=== PATIENT | female | born 1945 | race Caucasian/White ===

== ENCOUNTER → 2019-10-30 12:49 | Outpatient (CLI) | payer MEDICARE, SELFPAY ==
--- NOTE | 2019-10-30 12:56 | XR_ITS ---
PROCEDURE: XR DEXA AXIAL SKELETON CLINICAL HISTORY: OSTEOPORSIS COMPARISON: No exams were available for comparison FINDINGS: This exam is submitted to de for interpretation on 03/19/2020 at 3:03 p.m. The right hip BMD is 0.714 with a T-score of -1.2. The left hip BMD is 0.711 with a T-score of -1.2. The lumbar spine BMD is 0.803 with a T-score of -2.2. IMPRESSION: This patient is considered osteopenic according to the World Health Organization criteria. Bone density is between 10 and 25 percent below young normal. Fracture risk is moderate. Treatment is advised. Based on these results a follow-up exam is recommended in 2 year. Dictated by: Edis Pham MD 03/19/2020 15:03 Edis Pham MD in [place] 03/19/2020 15:03
== END ==
PROVIDERS: PCP Family Medicine; Visit Provider Family Medicine
DX: M81.0 Age-related osteoporosis without current pathological fracture (principal)
CPT/HCPCS: 77080

== ENCOUNTER → 2020-11-14 08:02 | Outpatient (CLI) | payer MEDICARE, SELFPAY ==
[2020-11-14 08:45] LABS: Chloride 103 mmol/L (98-107); Potassium 4.7 mmoL/L (3.5-5.1); Sodium 135 mmol/L (136-145)
[2020-11-14 08:48] LABS: Alanine Aminotransferase 16 U/L (12-78); Albumin Level 4.1 g/dl (3.5-5.0); Albumin/Globulin Ratio 1.8 (1.1-1.8); Alkaline Phosphatase 80 U/L (38-126); Anion Gap 8.7 mEq/L (5-15); Aspartate Amino Transferase 25 U/L (14-36); Bilirubin,Total 0.5 mg/dl (0.2-1.3); Blood Urea Nitrogen 10 mg/dl (7-17); Calcium 9.3 mg/dl (8.4-10.2); Carbon Dioxide 28 mmol/L (22.0-30.0); Cholesterol 174 mg/dl (140-200); Estimated Glomerular Filt Rate 82 ml/min (>60); GFR (African American) 99 ML/MIN (>60); Globulin 2.3 g/dL (1.3-3.2); Glucose 98 mg/dl (74-100); Total Protein,Serum 6.4 g/dl (6.3-8.2); Triglycerides 145 mg/dl (30-150); VLDL Cholesterol 29 mg/dL (0-40)
[2020-11-14 08:49] LABS: Chol/HDL Ratio 2.7 (1-3.5); HDL Cholesterol 64 mg/dl (40-60)
[2020-11-14 09:00] LABS: Direct LDL Cholesterol 86.16 mg/dL (100-129)
[2020-11-14 09:58] LABS: Thyroid Stimulating Hormone 2.73 uIU/mL (0.465-4.68)
[2020-11-14 10:05] LABS: Creatinine,Urine Random 52 mg/dL (Not Estab.)
[2020-11-14 10:15] LABS: Microalbumin/Creatinine Ratio 15.3
[2020-11-14 11:07] LABS: 25-OH Vitamin D, Total 49.5 ng/mL (30-100)
== END ==
PROVIDERS: Visit Provider Family Medicine
DX: I10 Essential (primary) hypertension (principal); E78.00 Pure hypercholesterolemia, unspecified; E55.9 Vitamin D deficiency, unspecified
CPT/HCPCS: 36415; 80053; 80061; 82043; 82306; 82570; 84443

== ENCOUNTER → 2020-12-17 09:22 | Outpatient (CLI) | payer MEDICARE, SELFPAY | PROVIDERS: Visit Provider Surgery | DX: Z01.812 Encounter for preprocedural laboratory examination (principal); Z11.52 Encounter for screening for COVID-19; Z12.11 Encounter for screening for malignant neoplasm of colon | CPT/HCPCS: C9803; U0003; U0005 ==

== ENCOUNTER → 2020-12-19 10:21 | Day surgery (SDC) | payer MEDICARE, SELFPAY ==
[2020-12-16 14:16] VITALS: BMI 24.3
[2020-12-19] VITALS (9 sets, daily range): BP systolic 93–168; BP diastolic 52–96; PULSE 59–94; RESP 16–18; TEMP 36.2–36.6; O2SAT 95–99
--- NOTE | 2020-12-19 12:32 | HMH.ANESCL ---
[facility] Anesthesia Checklist - Structural Data Admitted From: Home Planned Operative Procedure/s: colonoscopy Consent for Planned Operative Procedure(s) Verified: Yes - Airway Assessment C-Spine Mobility Assessed: Yes TMJ Mobility Assessed: Yes Dentition: Good Dentition - Neurological Assessment Level of Consciousness: Alert, Appropriate - Anesthesia Plan Anesthesia Risk discussed: Yes Anesthesia Plan: Verified ASA Class: II Anesthesia Type: MAC [facility] History I have reviewed the patient's past medical history: Yes Medical History: Reports:: Cancer (breast and lymph node), Hyperlipidemia, Hypertension Denies:: Diabetes Mellitus Type 1, Diabetes Mellitus Type 2, Internal Pacemaker, MRSA, Seizures *Have you ever received a pneumonia vaccine?: Yes *Have you received a flu vaccine this season?: Yes Anesthesia experience/problems:: none Laterality Cases: Right: Mastectomy Other Surgeries: No: Pacemaker Amputation: No Fractures: No - *Social History Last grade of school completed: Some college Smoking Status: Current every day smoker Tobacco Type: cigarettes # Packs/Day (cigarettes): 1 Alcohol Intake: never Substance Use Type: denies use *Occupational Status:: retired Housing: house Household Members: spouse *Travel in the last 8 weeks: Inside the [facility] Family Hx:: Cancer, Coronary Artery Disease, Hyperlipidemia, Hypertension
--- NOTE | 2020-12-19 12:41 | P.PCN_ITS ---
- Procedure: Date: 12/19/20 Patient Date of :: 1945 Procedure Performed:: Colonoscopy with polypectomy Indications:: History of polyps Positive Cologuard Performing Provider:: Ponce Santiago MD Referring Provider:: . Sedation:: Monitored anesthesia care Procedure:: After informed consent was obtained the patient was taken to the endoscopy suite . Sedation ensued after the patient was transferred to the left lateral decubitus position. Pulse, blood pressure, and oxygen saturation were monitored throughout the procedure. Digital rectal exam revealed no significant abnormality. The colonoscope was placed in position. The entire colon was evaluated. The colonoscope was carefully removed and the patient was transferred to recovery in stable condition. Please see findings and specimens below for detail. Findings:: Bowel preparation relatively poor Profound lack of relaxation Severe colonic spasticity Significant tortuosity of sigmoid colon Diverticulosis (most pronounced in sigmoid colon) Multiple large complex polyps (see specimens) Specimens:: Lobulated sessile adjacent right colon/hepatic flexure polyps (snare) Large complex pedunculated polyp at 35 cm (snare) Large complex pedunculated polyp at 15 cm (snare) Recommendations:: Further evaluation will be pending results of pathology; however, a short-term repeat evaluation is warranted secondary to size/nature/number of polyps and limitations in visualization. Will consider gastroenterology evaluation secondary to spasticity and lack of relaxation. Short-term repeat colonoscopy may be deferred to the gastroenterology service. Complications:: No immediate. Flat/upright films ordered secondary to overall difficulty of procedure with need to remove multiple large complex polyps. Estimated blood obtained (mL): 1
--- NOTE | 2020-12-19 15:00 | XR_ITS ---
PROCEDURE: XR ACUTE ABDOMEN SERIES CLINICAL INDICATION: Abdominal pain status post colonoscopy COMPARISON: No exams were available for comparison FINDINGS: Upright view of the chest shows no acute finding. Upright and supine views of the abdomen shows a nonspecific bowel gas pattern. No intestinal obstruction. No free air. IMPRESSION: No acute findings. Dictated by: Edis Pham MD 12/19/2020 15:07 Edis Pham MD in [place] 12/19/2020 15:07
== END ==
PROVIDERS: PCP Family Medicine; Visit Provider Surgery
PROC: 0DJD8ZZ Inspection of Lower Intestinal Tract, Via Natural or Artificial Opening Endoscopic (ICD-10-PCS; principal; 2020-12-19 11:30)
DX: K62.89 Other specified diseases of anus and rectum (principal); K63.5 Polyp of colon; K56.2 Volvulus; K58.9 Irritable bowel syndrome, unspecified; K57.32 Diverticulitis of large intestine without perforation or abscess without bleeding; Z86.010 Personal history of colon polyps; Z85.3 Personal history of malignant neoplasm of breast; E78.5 Hyperlipidemia, unspecified; I10 Essential (primary) hypertension; Z72.0 Tobacco use; Z80.9 Family history of malignant neoplasm, unspecified; Z82.49 Family history of ischemic heart disease and other diseases of the circulatory system; Z83.438 Family history of other disorder of lipoprotein metabolism and other lipidemia
CPT/HCPCS: 45385; 74021; 88305

== ENCOUNTER → 2021-09-16 06:15 | Outpatient (CLI) | payer MEDICARE, SELFPAY ==
--- NOTE | 2021-09-16 | CA_ITS ---
APPROVED REPORT Exam: Exercise Treadmill Technologist: Patricia Harvey, Ht: 5 ft 8 in Wt: 160 lbs BSA: 1.86 m2 HR: 63 bpm BP: 128/66 mmHg Rhythm: NSR, normal Medical History Medical History: HTN, Hyperlipidemia Medications: Naproxen,,,,, Vit D3,,,,, Simvasatin,,,,, Lisinporil,,,,, Cardiac Risk Factors: HTN, Hyperlipidemia Stress Test Details Test: Enedina HR Resting HR: 73 bpm Max Heart Rate (APMHR): 144.322336 bpm Max HR Achieved: 127 bpm Target HR (85% APMHR): 122.605962 bpm % of APMHR: 88.19 Recovery HR: 93 bpm BP Resting BP: 128/66 mmHg Max BP: 196/80 mmHg Recovery BP: 174.0/84.0 mmHg ECG Resting ECG: NSR, normal Clinical Exercise duration: 06:00 min Highest Stage Achieved: Exercise capacity: 7.0 METs Stress ECG Conclusion Amlodipine 5mg and clonidine .1mg PO given 1.5 hours before starting exercise stress. Meds ordered by Dr Garcia Pt exercised total of 6:00 minutes. During enedina protocol pt experinced mild dizziness the last 30 seconds of exercise. No CP noted. No arrhythmias noted. Allowing for motion artifact the ST response to exercise appears to be within normal. Normal GXT. Myoview images reported separately. Test Summary REST . . . . . . . Standing REST . . . . . . . Sitting REST 04:55 0.0 0.0 73 . 128/ 66 . . Stage 1 01:00 10.0 1.7 97 . . . . Stage 1 02:00 10.0 1.7 103 . . . . Stage 1 03:00 10.0 1.7 107 . 196/ 80 . . Stage 2 01:00 12.0 2.5 118 . . . . Stage 2 02:00 12.0 2.5 120 . . . . Stage 2 03:00 12.0 2.5 127 . . . Stop exercise at 06:00 RECOVERY 01:00 0.0 0.0 109 . . . . RECOVERY 02:00 0.0 0.0 91 . . . . RECOVERY 03:00 0.0 0.0 83 . 174/ 84 . . RECOVERY 04:00 0.0 0.0 72 . 174/ 91 . . RECOVERY 05:00 0.0 0.0 74 . 161/ 76 . . RECOVERY 06:00 0.0 0.0 70 . 161/ 76 . . RECOVERY 06:45 0.0 0.0 72 . 161/ 76 . . Electronically signed by : Elroy Avelar MD 09/17/2021 06:36:34
--- NOTE | 2021-09-16 06:31 | NM_ITS ---
APPROVED REPORT Exam: Nuclear Stress Test Indication: Abnormal EKG, Syncope, HTN, High cholesterol, Tobacco use Patient Location: Outpatient Stress Tech: Patricia MAYO Tech:Helene Perez, ARRT, RT (R)(N) Ht: 5 ft 8 in Wt: 160 lbs Bra Size: 34C HR: 73 bpm BP: 128/66 mmHg BSA: 1.86 m2 TID: 1.15 BMI: 24.3 History: Abnormal EKG, Syncope, HTN, High cholesterol, Tobacco use Procedure: Patient exercised on Alfa protocol 6:00 minutes and sec, resting heart rate 73 bpm, resting blood pressure 128/66 mmHg, with exercise maximum heart rate achived was 127 bpm which is 88 % of the maximum predicted heart rate and blood pressure was 196/80 mmHg. Test was stopped due to SOB. Patient denied any complaint of chest pain. Patient has Adequate exercise capacity, achieved 7.0 METs of workload on treadmill, the blood pressure response to exercise was Normal . Electrocardiogram Resting electrocardiogram shows sinus rhythm, with exercise there is less than 1.[address] segment depression is noted from the baseline EKG. The EKG portion of the exercise Myoview is negative for ischemia. Cardiac Stress and Resting SPECT Images: Cardiac Stress and Resting SPECT images were obtained using technetium 99m Myoview 28.9 mCi stress and 10.50 mCi at rest. Gated SPECT for analysis of segmental wall motion and calculation of the ejection fraction also done. Cardiac stress and resting SPECT images show uniform myocardial activity without segmental perfusion abnormality, computer derived ejection fraction is 55% with no regional wall motion abnormality, right ventricle is normal size and contractility. Conclusion: 1. The EKG portion of the exercise Myoview is negative for ischemia, patient has adequate exercise capacity achieved 7 METS of workload on treadmill, the blood pressure response to exercise was adequate. There was no exercise-induced chest discomfort. 2. No scintigraphic evidence of reversible ischemia seen, computer derived ejection fraction is 55% with no regional wall motion abnormality, right ventricle is normal size and contractility. 3. Normal exercise Myoview study. Electronically signed by : Elroy Avelar MD 09/17/2021 06:40:39
--- NOTE | 2021-09-16 09:54 | HMH.ITSHM ---
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 []LISINOPRIL SIMVASTATIN NAPROXEN CALCIUM
== END ==
PROVIDERS: PCP Family Medicine; Visit Provider Family Medicine
DX: R55 Syncope and collapse (principal); R94.31 Abnormal electrocardiogram [ECG] [EKG]
CPT/HCPCS: 78452; 93017; A9502

== ENCOUNTER → 2021-11-13 09:51 | Outpatient (CLI) | payer MEDICARE, SELFPAY ==
--- NOTE | 2021-11-13 09:56 | MM_ITS ---
PROCEDURE INFORMATION: Exam: MG Left Screening 3D Mammography Exam date and time: 11/13/2021 9:52 AM Age: 76 years old Clinical indication: Screening. Personal history of right breast cancer, status post right mastectomy. TECHNIQUE: Imaging protocol: Left Screening tomosynthesis and 2D mammography including computer-aided detection (CAD) when performed. COMPARISON: 1. MG MM MAMMO DIGITAL MARIE SCREEN LEFT 11/06/2020 12:42 PM 2. MG MM MAMMO DIGITAL MARIE SCREEN LEFT 11/06/2020 12:42 PM 3. MG MM MAMMO DIGITAL MARIE SCREEN LEFT 10/25/2019 12:53 PM FINDINGS: MAMMOGRAPHY: Breast composition: The breasts are heterogeneously dense, which may obscure small masses. Mass: None. Architectural distortion: None. Calcifications: No suspicious calcifications. Asymmetric density: None. Skin thickening: None. Axillary adenopathy: None. Other findings: Biopsy clip. IMPRESSION: No mammographic evidence of malignancy. Annual screening is recommended unless otherwise clinically indicated. Technologist notes history of sonogram following an area in the left breast, if prior images or reports are provided, I am happy to add an addendum. Please refer to these at outside recommendations as well. ASSESSMENT: BI-RADS Category 2: Benign
== END ==
PROVIDERS: PCP Internal Medicine Cardiovascular Disease; Visit Provider Family Medicine
DX: Z12.31 Encounter for screening mammogram for malignant neoplasm of breast (principal)
CPT/HCPCS: 77063; 77067

== ENCOUNTER → 2022-11-18 10:46 | Outpatient (CLI) | payer MEDICARE, SELFPAY ==
--- NOTE | 2022-11-18 10:49 | MM_ITS ---
PROCEDURE INFORMATION: Exam: MG Left Screening 3D Mammography Exam date and time: 11/18/2022 10:40 AM Age: 77 years old Clinical indication: Screening examination; Additional info: H/o RT breast cancer, status post mastectomy TECHNIQUE: Imaging protocol: Left Screening tomosynthesis and 2D mammography including computer-aided detection (CAD) when performed. COMPARISON: 1. MG MM DIG SC MAMM UNILAT LT CAD 11/13/2021 9:52 AM 2. MG MM MAMMO DIGITAL MARIE SCREEN LEFT 11/06/2020 12:42 PM FINDINGS: MAMMOGRAPHY: Breast composition: The breast is heterogeneously dense, which may obscure small masses. Mass: None. Architectural distortion: None. Calcifications: No suspicious calcifications. Asymmetric density: None. Skin thickening: None. Axillary adenopathy: None. Other findings: The patient is status post right mastectomy IMPRESSION: No mammographic evidence of malignancy. Annual screening is recommended unless otherwise clinically indicated. ASSESSMENT: BI-RADS Category 1: Negative
== END ==
PROVIDERS: PCP Family Medicine; Visit Provider Family Medicine
DX: Z12.31 Encounter for screening mammogram for malignant neoplasm of breast (principal)
CPT/HCPCS: 77063; 77067

== ENCOUNTER 2023-11-22 13:36 | Outpatient (CLI) | payer MEDICARE, SELFPAY ==
--- NOTE | 2023-11-22 13:44 | MM_ITS ---
PROCEDURE INFORMATION: Exam: MG Left Screening 3D Mammography Exam date and time: 11/22/2023 1:44 PM Age: 78 years old Clinical indication: Screening examination; Personal history of right breast cancer status post mastectomy. TECHNIQUE: Imaging protocol: Left Screening tomosynthesis and 2D mammography including computer-aided detection (CAD) when performed. COMPARISON: 1. MG MM DIG SC MAMM UNILAT LT CAD 11/18/2022 10:40 AM 2. MG MM DIG SC MAMM UNILAT LT CAD 11/13/2021 9:52 AM FINDINGS: MAMMOGRAPHY: Breast composition: There are scattered areas of fibroglandular density. Mass: No suspicious masses. Architectural distortion: None. Calcifications: No suspicious calcifications. Asymmetric density: None. Skin thickening: None. Axillary adenopathy: None. IMPRESSION: No mammographic evidence of malignancy. Annual screening is recommended unless otherwise clinically indicated. ASSESSMENT: BI-RADS Category 1: Negative.
== END 2023-11-22 23:59 | disposition home or self-care (01) ==
LOC: RAD 13:36
PROVIDERS: PCP Family Medicine; Visit Provider Family Medicine
DX: Z12.31 Encounter for screening mammogram for malignant neoplasm of breast (principal); Z85.3 Personal history of malignant neoplasm of breast
CPT/HCPCS: 77063; 77067

== ENCOUNTER 2023-12-17 09:46 | Outpatient (CLI) | payer MEDICARE, SELFPAY ==
--- NOTE | 2023-12-17 09:52 | XR_ITS ---
FINAL REPORT CLINICAL HISTORY: PAIN; pt states fluid on elbow COMPARISON: None FINDINGS: LEFT ELBOW: 3 images of the left elbow were obtained. There is no evidence of fracture or dislocation. Mild degenerative change is present. There is soft tissue swelling overlying the olecranon, consistent with olecranon bursitis. IMPRESSION: No acute bony abnormality. Soft tissue swelling overlying the olecranon, consistent with olecranon bursitis. Reviewed, Interpreted and Dictated by Zana Person III, MD Transcribed by Oneida Camara Authenticated and [facility]
== END 2023-12-17 23:59 | disposition home or self-care (01) ==
LOC: RAD 09:48
PROVIDERS: PCP Family Medicine; Visit Provider Family Medicine
DX: M25.522 Pain in left elbow (principal)
CPT/HCPCS: 73080

== ENCOUNTER 2024-11-23 10:01 | Outpatient (CLI) | payer MEDICARE, SELFPAY ==
--- OUTSIDE RECORDS SUMMARY | 2024-02-22 07:15 | XMS_ITS ---
Author Organization [facility] Address [address] [facility] [address] [place] [id number] Care Team Providers Care Campaign Fundraiser Name Role Phone Shayne Garcia Primary Care Provider Allergies Allergen (clinical drug ingredient) Drug/Non Drug Allergy documented on EMR Reaction Allergy Type Onset Date Status alendronate Alendronate Sodium GI upset Drug Allergy 2019 Active REASON FOR VISIT sore spot on leg Social History Tobacco Use: Social History Observation Description Date Smoking Status WARNING: Information temporarily unavailable CURRENT TOBACCO USE: Question Answer Notes Are you a: 1/2 pack daily, Since Age: 19 Encounters Encounter Location Date Provider Diagnosis [facility] [address] [place] [id number] 02/22/2024 Shayne Garcia Plan Of Treatment Next Appt Details Provider Name:Shayne Martinez ry, 04/24/2025 09:45:00 AM, [address], [place], [place], [id number], Progress Notes * TERESITA JALLOHOB:1945 (79 yo F)Acc No.[id number]:02/22/2024 Progress Notes Patient: EDYTA HIRSCH Provider: Lucho Garcia M.D. :1945 A ge:78 Y S ex:Female Date:02/22/2024 Address:[address], [place], [id number] Subjective: * Chief Complaints: * 1 . Sore spot on leg. * ROS: C ARDIOLOGY: no D izziness. n o C hest pain. G ASTROENTEROLOGY: no N ausea. n o V omiting. U ROLOGY: no D ifficulty urinating. n o B lood in urine. * Medical History: H ypertension, Hyperlipidemia, RT Side Breast Cancer, Oct/Nov 1998 - Chemo, Surgery, Radiation - Chemo 2000 and 2001, Arthritis, Allergic Rhinitis, Neuropathy - Cancer, Osteoporosis, Cologuard, 2018 (normal), 2020 (abnormal), see colonoscopy, DVT, left upper extremity after IV port placement, s/p 6 months of Warfarin therapy, Colon polyps, Diverticulosis, 25 pack year smoking history as of 2021. * Surgical History: R T Mastectomy 02/1999, Colonoscopy 2020. * Hospitalization/Major Diagno stic Procedure: M astectomy - Overnight stay - [facility] 02/1999. * Family History: F ather: 82 yrs, diagnosed with Diabetes, Hypertension, Heart Disease. M other: 90 yrs, diagnosed with Hypertension, Stroke. S iblings: alive, diagnosed with Cancer. Children: alive. P aternal Grand Father: diagnosed with Heart Disease, Cancer. M aternal Grand Father: diagnosed with Heart Disease. P aternal uncle: diagnosed with Diabetes. P aternal aunt: diagnosed with Diabetes. M aternal uncle: diagnosed with Diabetes. M aternal aunt: diagnosed with Diabetes, Cancer. 3 sister(s) . 2 son(s) - healthy. . Lymphoma, Breast. * Social History: C URRENT TOBACCO USE: Yes A re you a: 1/2 pack daily, Since Age: 19. C affeine: yes, 7 cups a day. * Allergies: A lendronate Sodium: GI upset - Side Effects - Onset Date 10/24/2019. Objective: * Vitals: Assessment: Plan: * Treatment: * Procedure Codes: G 2211 Complex e/m visit add on * Images: Billing Information: * Visit Code: * Procedure Codes: G2211 Complex e/m visit add on. * Electronic signature of Nadira Garcia MD on 11/23/2024 at 10:19 AM EDT Sign off status: Pending * Provider: Lucho Garcia M.D. Date: 0 02/22/2024 Generated for Trey crouch/Robel/Huey on: 1 10:19 AM EDT
--- OUTSIDE RECORDS SUMMARY | 2024-02-25 06:45 | XMS_ITS ---
Author Organization [facility] Address [address] [place] [id number] Care Team Providers Care Steamtable Attendant Railroad Name Role Phone Shayne Garcia Primary Care Provider Allergies Allergen (clinical drug ingredient) Drug/Non Drug Allergy documented on EMR Reaction Allergy Type Onset Date Status alendronate Alendronate Sodium GI upset Drug Allergy 2019 Active Results Component Value Reference Range Notes P-Surgical Pathology Reviewed date:02/28/2024 02:23:30 PM Interpretation:Abnormal Performing Lab: Notes/Report: Surgical Pathology View Report Patient Name: VERONA NEGRON Age-Sex-: 78y F 1945 Procedure Date: 02/25/2024 Accession Date: 02/26/2024 Pt Acct#: Report Date: 02/28/2024 Location: OFFICE Physician(s): Shayne Garcia MD P A T H O L O G Y R E P O R T DIAGNOSIS: 1. 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 2. 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 Aster Saregnt MD electronically signed 02/28/2024 01:01 PM Gross Description: 1. Received in formalin labeled Verona Negron, neoplasm lateral right lower calf is a pale cr-sams to cr-white raised granular flat portion of skin measuring 1.0 x 0.8 x 0.1 cm. The margin is inked blue. The specimen is sectioned and totally submitted in cassette 1A, 05/09. 2. Received in formalin labeled Verona Negron, neoplasm van, per requisition right van is a cr-sams raised skin shave measuring 1.1 x 1.0 x 0.3 cm. Eccentrically on the skin surface is a cr-white and speckled brown raised granular rough lesion measuring 0.5 x 0.5 cm and measures 0.1 cm from the nearest margin. The margin is inked blue. The specimen is sectioned and totally submitted in cassette 2A, 05/09. (RMJ,[id number],[id number]) Grossing services provided by [facility], d/b/a [address] [place], [address] Ronnie Hubbard MD, Superintendent Overhead Distribution. Microscopic Description: 1. There is a crateriform proliferation of endophytic squamous epithelium that extends into the underlying dermis as irregularly shaped islands. Mild cytologic atypia is present. This lesion is best regarded as a low grade squamous cell carcinoma (keratoacanthoma type). The lesion is at least 1.1 mm thick. No definitive perineural or lymphovascular invasion are identified. 2. There is a crateriform proliferation of endophytic squamous epithelium that extends into the underlying dermis as irregularly shaped islands. Mild cytologic atypia is present. This lesion is best regarded as a low grade squamous cell carcinoma (keratoacanthoma type). The lesion is at least 2.1 mm thick. No definitive perineural or lymphovascular invasion are identified. Clinical History: D48.5 Neoplasm of uncertain behavior of skin Time of Collection of Tissue: [11:45 AM] Time of Immersion of Tissue in Fixative: [11:46 AM] Specimen List: 1. Neoplasm lateral, right lower calf 2. Neoplasm right van Unless specified otherwise above, the quality of the H and E and any other stains performed is satisfactory, and any internal or external positive and negative controls react appropriately. End of Report Technical services provided by [facility], d/b/a [address] , [place] [address] Ronnie Hubbard MD, Superintendent Overhead Distribution. Case reviewed and diagnosis rendered at [facility], d/b/a [address] , [place] [address] Ronnie Hubbard MD, Superintendent Overhead Distribution. CONFIDENTIAL REASON FOR VISIT sore spots on leg Medications Medication SIG (Take, Route, Frequency, Duration) Notes Start Date End Date Status Calcium Citrate + D 630MG/500IU 1 TAB(S) ORALLY ONCE DAILY Active Aspirin 81 MG 1 tab(s) orally once a day; Duration: 30 day(s) Active Simvastatin 20 MG 1 tablet in the even ing Orally once daily; Duration: 90 days Active Lisinopril 30 MG 1 tablet Orally once daily; Duration: 90 days Active Social History Tobacco Use: Social History Observation Description Date Smoking Status WARNING: Information temporarily unavailable CURRENT TOBACCO USE: Question Answer Notes Are you a: 1/2 pack daily, Since Age: 19 Vital Signs Weight 149.8 lbs 02/25/2024 Blood pressure systolic 132 mm Hg 02/24/19 25 Blood pressure diastolic 84 mm Hg 025 Heart Rate 71 /min 02/25/2024 Height 68.50 in 02/25/2024 BMI 22.44 kg/m2 02/25/2024 Encounters Encounter Location Date Provider Diagnosis [facility] [address] [place] [phone] 02/25/2024 Shayne Garcia Neoplasm of uncertai n behavior of skin of lower leg D48.5 Assessments Encounter Date Diagnosis (ICD Code) Assessment Notes Treatment Notes Treatment Clinical Notes Section Notes 02/25/2024 Neoplasm of uncertain behavior of skin of lower leg (ICD-10 - D48.5) Plan Of Treatment Next Appt Details Follow Up: via phone to repo rt test results, Reason: Provider Name:Shayne Martinez ry, 04/24/2025 09:45:00 AM, [address], [address], [place], [phone], Procedure Notes * Category Sub-Category Detail Notes Shave Biopsy Indication: Uncertain nature of the lesion Consent: All risks, benefits, and potential complications were discussed including bleeding, infection, scarring, and the need for further surgery to improve the resultant scar or to remove a cancerous process. It was explained that this procedure was for diagnostic purposes and was not being performed with the intention of curing the condition Location 1, R/O: Malignancy Location 2, R/O: Malignancy Method: The biopsy was taken using the tangential shave technique. The area was first prepped with Betadine and anesthetized with 1% Lidocaine with epi. A flexible blade was used to harvest a patient admitting representative specimen, light electrocautery of excision site for hemostasis. This procedure was followed for both lesions Post-op: The likelihood of sc arring and the possibility of recurrence was reiterated to the patient. The patient is instructed to cleanse the wound twice daily with soap and water or hydrogen peroxide, and then apply a bandage for one week's time. The patient is instructed to notify the office if the wound site(s) ooze, become painful or red. The biopsy specimen was sent to the laboratory for pathological evaluation Progress Notes * TERESITA NEGRONOB:1945 (79 yo F)Acc No.[id number]:02/25/2024 Progress Notes Patient: VERONA HIRSCH Provider: Lucho Garcia M.D. :1945 A ge:78 Y S ex:Female Date:02/25/2024 Address:[address] [facility] [facility], [place], [id number] Subjective: * Chief Complaints: * 1 . Sore spots on leg. * HPI: D ermatology: 78 year old female presents with c/o skin lesion P t presents today with c/o two sores on her right lower leg. Pt sts that the largest spot came up around Thanksgiving but sts that second and smaller spot just came up within the last two weeks. * ROS: D ERMATOLOGY: no R prieto. n o H asher. G ASTROENTEROLOGY: no N ausea. n o V omiting. U ROLOGY: no D ifficulty urinating. n o B lood in urine. * Medical History: H ypertension, Hyperlipidemia, RT Side Breast Cancer, Oct/Nov 1998 - Chemo, Surgery, Radiation - Chemo 2000 and 2001, Arthritis, Allergic Rhinitis, Neuropathy - Cancer, Osteoporosis, Cologuard, 2017 (normal), 2020 (abnormal), see colonoscopy, DVT, left upper extremity after IV port placement, s/p 6 months of Warfarin therapy, Colon polyps, Diverticulosis, 25 pack year smoking history as of 2021. * Surgical History: R T Mastectomy 02/1999, Colonoscopy 2020. * Hospitalization/Major Diagno stic Procedure: M astectomy - Overnight stay - [facility] [place] 02/1999. * Family History: F ather: 82 [...] affeine: yes, 7 cups a day. * Medications: T aking Calcium Citrate + D 630MG/500IU 1 TAB(S) ORALLY ONCE DAILY , Taking Aspirin 81 MG Tablet Delayed Release 1 tab(s) orally once a day , Taking Lisinopril 30 MG Tablet 1 tablet Orally once daily , Taking Simvastatin 20 MG Tablet 1 tablet in the evening Orally once daily , Medication List reviewed and reconciled with the patient * Allergies: A lendronate Sodium: GI upset - Side Effects - Onset Date 10/24/2019. Objective: * Vitals: W t:149.8, Temp:98.0, BP:132/84, HR:71, Nurse:LORETA, Ht: 68.50, BMI:22.44. * Examination: G eneral Examination: General Appearance: N AD. S kin: m id right van has two separate, but similar, skin lesions, the most inferior one is a 1.2 cm in diameter papule with a small central ulceration, no drainage. The superior one is a 7 mm in diameter pink papule with no ulceration. Assessment: * Assessment: 1. N eoplasm of uncertain behavior of skin of lower leg - D48.5 (Primary) Plan: * Treatment: Value Reference Range S urgical Pathology View Report - * Ginger Casillas 02/28/2024 2:23: 27 PM >See phone encounter * Procedures: S have Biopsy: Indication: U ncertain nature of the lesion. C onsent:?All risks, benefits,and potential complications were discussed including bleeding, infection, scarring, and the need for further surgery to improve the resultant scar or to remove a cancerous process. It was explained that this procedure was for diagnostic purposes and was not being performed with the intention of curing the condition. L ocation 1, R/O: M alignancy. L ocation 2, R/O: M alignancy. M ethod: T he biopsy was taken using the tangential shave technique. The area was first prepped with Betadine and anesthetized with 1% Lidocaine with epi. A flexible blade was used to harvest a patient admitting representative specimen, light electrocautery of excision site for hemostasis. This procedure was followed for both lesions. P ost-op: T he likelihood of scarring and the possibility of recurrence was reiterated to the patient. The patient is instructed to cleanse the wound twice daily with soap and water or hydrogen peroxide, and then apply a bandage for one week's time. The patient is instructed to notify the office if the wound site(s) ooze, become painful or red. The biopsy specimen was sent to the laboratory for pathological evaluation. * Procedure Codes: 1 1302 SHAVE LESION,TRUNK,ARMS,LEGS 1.1 TO 2.0 CM, Modifiers: 51 , 88954 SHAVE LESION,TRUNK,ARMS,LEGS 0.6 TO 1.0 CM * Follow Up: v ia phone to report test results * Images: Billing Information: * Visit Code: * Procedure Codes: 32933 SHAVE LESION,TRUNK,ARMS,LEGS 1.1 TO 2.0 CM. Modifiers: 51 99407 SHAVE LESION,TRUNK,ARMS,LEGS 0.6 TO 1.0 CM. * Electronic signature of Nadira Garcia MD on 11/23/2024 at 10:19 AM EDT Sign off status: Pending * Provider: Lucho Garcia M.D. Date: 0 02/25/2024 Generated for Trey crouch/Robel/Kaykayitting on: 10:19 AM EDT History and Physical Notes * HPI (History of Present Illness) Category Sub-Category Detail Notes Category Not es Dermatology skin lesion Pt presents toda y with c/o two sores on her right lower leg. Pt sts that the largest spot came up around Thanksgiving but sts that second and smaller spot just came up within the last two weeks Examination Category Sub-Category Detail Notes Category Not es General Examination General Appearance: NAD Skin: mid right van has t wo separate, but similar, skin lesions, the most inferior one is a 1.2 cm in diameter papule with a small central ulceration, no drainage. The superior one is a 7 mm in diameter pink papule with no ulceration
--- OUTSIDE RECORDS SUMMARY | 2024-04-26 05:15 | XMS_ITS ---
Author Organization [facility] Address [address] [facility] [address] [place] [id number] Care Team Providers Care Manager Poker Name Role Phone Shayne Garcia Primary Care Provider [phone] Allergies Allergen (clinical drug ingredient) Drug/Non Drug Allergy documented on EMR Reaction Allergy Type Onset Date Status alendronate Alendronate Sodium GI upset Drug Allergy 2019 Active REASON FOR VISIT 6 month check Medications Medication SIG (Take, Route, Frequency, Duration) Notes Start Date End Date Status Lisinopril 30 MG 1 tablet Orally once daily Active Calcium Citrate + D 630MG/500IU 1 TAB(S) ORALLY ONCE DAILY Active Simvastatin 20 MG 1 tablet in the even ing Orally once daily Active Aspirin 81 MG 1 tab(s) orally once a day; Duration: 30 day(s) Active Social History Tobacco Use: Social History Observation Description Date Smoking Status WARNING: Information temporarily unavailable CURRENT TOBACCO USE: Question Answer Notes Are you a: 1/2 pack daily, Since Age: 19 Vital Signs Weight 151 lbs 04/26/2024 Blood pressure systolic 132 mm Hg 04/27/19 25 Blood pressure diastolic 80 mm Hg 025 Heart Rate 81 /min 04/26/2024 Height 68.50 in 04/26/2024 BMI 22.62 kg/m2 04/26/2024 Encounters Encounter Location Date Provider Diagnosis [facility] [address] [place] [phone] 04/26/2024 Shayne Gracia Essential hypertensi on I10 ; Pure hypercholesterolemia E78.00 and Recurrent syncope R55 Assessments Encounter Date Diagnosis (ICD Code) Assessment Notes Treatment Notes Treatment Clinical Notes Section Notes 04/26/2024 Essential hypertensi on (ICD-10 - I10) 04/26/2024 Pure hypercholesterolemia (ICD-10 - E78.00) 04/26/2024 Recurrent syncope (ICD-10 - R55) Patient declines further work up today, discussed having a loop recorder placed Plan Of Treatment Medication Medication Name Sig Start Date Stop Date Notes Lisinopril 30 MG 1 tablet Orally once daily Simvastatin 20 MG 1 tablet in the even ing Orally once daily Treatment Notes Assessment Notes Recurrent syncope Patient declines fur ther work up today, discussed having a loop recorder placed Next Appt Details Follow Up: 6 Months fasting appt., Reason: Provider Name:Shayne Martinez ry, 04/24/2025 09:45:00 AM, [address], [address], [place], [place], [phone], Progress Notes * TERESITA JALLOHOB:1945 (79 yo F)Acc No.[id number]:04/26/2024 Progress Notes Patient: EDYTA HIRSCH Provider: Lucho Garcia M.D. :1945 A ge:78 Y S ex:Female Date:04/26/2024 Address:[address] [place] [address], [place], [id number] Subjective: * Chief Complaints: * 1 . 6 month check. * HPI: C ardiology: 78 year old female presents with c/o Blood Pressure Elevated?Pt here for 6 mo f/u on hypertension, states she is doing well and does not have any concerns.? c/o Hyperlipidemia P t is not fasting today. * ROS: D ERMATOLOGY: no R prieto. n o H asher. G ASTROENTEROLOGY: no N ausea. n o V omiting. N EUROLOGY: Positive for p atient had another syncopal episode in the past month. Her family was with her, she had some stomach pain before the episode, which did not last long. BP was noted to be low, states she felt weak for a few minutes then all symptoms resolved.? U ROLOGY: no D ifficulty urinating. n o B lood in urine. * Medical History: H ypertension, Hyperlipidemia, RT Side Breast Cancer, Nov 1998 - Chemo, Surgery, Radiation - Chemo 2000 and 2001, Arthritis, Allergic Rhinitis, Neuropathy - Cancer, Osteoporosis, Cologuard, 2018 (normal), 2020 (abnormal), see colonoscopy, DVT, left upper extremity after IV port placement, s/p 6 months of Warfarin therapy, Colon polyps, Diverticulosis, 25 pack year smoking history as of 2021, Squamous cell skin cancer, right leg, Dx 2024. * Surgical History: R T Mastectomy 02/1999, Colonoscopy 2020. * Hospitalization/Major Diagno stic Procedure: M astectomy - Overnight stay - [place] 02[place]1999. * Family History: F [...] Onset Date 10/24/2019. Objective: * Vitals: W t: 151, Temp: 97.8, BP: 132/80, HR: 81, Nurse: ross, Ht: 68.50, BMI:22.62. * Examination: C ardiology: General Appearance: p leasant, NAD. H EENT: u nremarkable. H eart sounds: R RR, normal S1, S2. L ungs: c lear, no rales or wheezes.?Extremities: n o leg edema. Assessment: * Assessment: 1. E ssential hypertension - I10 (Primary) 2 . P ure hypercholesterolemia - E78.00 3 . R ecurrent syncope - R55 Plan: * Treatment: 2. P ure hypercholesterolemia Continue Simvastatin Tablet, 20 MG, 1 tablet in the evening, Orally, once daily. 3. R ecurrent syncope Notes: Patient declines further work up today, discussed having a loop recorder placed * Procedure Codes: G 2211 Complex e/m visit add on, 3075F SYST BP GE 130 - 139MM HG, 3079F DIAST BP 80-89 MM HG * Follow Up: 6 Months fasting appt. * Images: Billing Information: * Visit Code: 35151 Office Visit, Est Pt., Level 3. * Procedure Codes: G2211 Complex e/m visit add on. 3075F SYST BP GE 130 - 139MM HG. 3079F DIAST BP 80-89 MM HG. * Electronic signature of Nadira Garcia MD on 11/23/2024 at 10:20 AM EDT Sign off status: Pending * Provider: Lucho Garcia M.D. Date: 0 04/26/2024 Generated for Trey crouch/Robel/Kaykayitting on: 1 10:20 AM EDT History and Physical Notes * HPI (History of Present Illness) Category Sub-Category Detail Notes Category Not es Cardiology Blood Pressure Elevated Pt here for 6 mo f/u on hypertension, states she is doing well and does not have any concerns Hyperlipidemia Pt is not fasting to day Examination Category Sub-Category Detail Notes Category Not es Cardiology Lungs: clear, no rales or wheezes HEENT: unremarkable Heart sounds: RRR, normal S1, S2 Extremities: no leg edema General Appearance: pleasant, NAD
--- OUTSIDE RECORDS SUMMARY | 2024-10-25 05:15 | XMS_ITS ---
Author Organization [facility] Address [address] [place] [id number] Care Team Providers Care Nuclear Medicine Medical Director Name Role Phone Shayne Garcia Primary Care Provider Allergies Allergen (clinical drug ingredient) Drug/Non Drug Allergy documented on EMR Reaction Allergy Type Onset Date Status alendronate Alendronate Sodium GI upset Drug Allergy 2019 Active Results Component Value Reference Range Notes P-Comprehensive Metabolic Pa amy (CMP) Reviewed date:10/27/2024 04:23:53 PM Interpretation:Normal Performing Lab: Notes/Report: Test performed by [facility], [address] , [address], [place] [address] Kip Chen MD, Corporate Secretary CLIA: [id number] Sodium 137 135-145 mmol/L Potassium 4.5 3.5-5.3 mmol/L Chloride 100 97-108 mmol/L CO2 25 20-32 mmol/L Glucose 97 65-99 mg/dL BUN 11 8-23 mg/dL Creatinine 0.78 0.50-1.00 mg/dL Calcium 9.9 8.6-10.4 mg/dL eGFR by Creatinine 77 >59 mL/min/1.73m2 Protein 6.8 6.0-8.3 g/dL Albumin 4.7 3.5-5.3 g/dL Alkaline Phosphatase 84 35-121 IU/L ALT (SGPT) 14 <5-47 IU/L AST (SGOT) 19 <5-40 IU/L Bilirubin, Total 0.3 <0.2-1.2 mg/dL A/G Ratio 2.2 1.1-2.5 P-Lipid Panel Reviewed date:10/27/2024 04:23:53 PM Interpretation:Normal Performing Lab: Notes/Report: Test performed by [facility] [address] , [address], [place] [address] Kip Chen MD, Corporate Secretary CLIA: [id number] Cholesterol 163 <200 mg/dL Triglycerides 82 <150 mg/dL HDL Cholesterol 73 >39 mg/dL Cholesterol / HDL Ratio 2.23 0.00-4.44 Ratio Non-HDL Cholesterol 90 <130 mg/dL LDL Cholesterol (Calculation) 74 <130 mg/dL LDL Cholesterol Levels* Less than 100 mg/dL Optimal 100 to 129 mg/dL Near Optimal/ Above Optimal 130 to 159 mg/dL Borderline High 160 to 189 mg/dL High 190 mg/dL and above Very High * Categories as recommended by the 2004 ATPIII guidelines LDL/HDL Ratio 1.0 <3.3 Ratio LDL Cholesterol Patient History Test Date: 10/27/2023 LDL Results: 74 Units: mg/dL % Change: - Test Date: 10/25/2024 LDL Results: 74 Units: mg/dL % Change: 0% P-TSH reflex to FT4 Reviewed date:10/27/2024 04:23:53 PM Interpretation:Normal Performing Lab: Notes/Report: Test performed by [facility] [address] , [place] [address] Kip Chen MD, Corporate Secretary CLIA: [id number] TSH reflex to FT4 1.98 0.43-5.25 mU/L P-Microalbumin/Creatinine, R andom Urine Sample Reviewed date:10/27/2024 04:23:53 PM Interpretation:Normal Performing Lab: Notes/Report: Test performed by [facility] [address] , [place] [address] Kip Chen MD, Corporate Secretary CLIA: [id number] Albumin/Creatinine Ratio, Urine 13 0-30 ug/m g Microalbumin, Urine, Random 0.5 Creatinine, Urine 39.5 P-Vitamin D 25-Hydroxy Reviewed date:10/27/2024 04:23:53 PM Interpretation:Normal Performing Lab: Notes/Report: Test performed by [facility] [address] , [address], [place] [address] Kip Chen MD, Corporate Secretary CLIA: [id number] Vitamin D 25-Hydroxy 48.7 30.0-100.0 ng/mL Interpretation of Vitamin D 25 OH: < 20 ng/mL - Deficiency 20 - 29 ng/mL - Insufficiency 30 - 100 ng/mL - Sufficiency > 100 ng/mL - Super-therapeutic- toxicity may occur above this level. Clinical correlation required. REASON FOR VISIT 6 month fasting checkup Medications Medication SIG (Take, Route, Frequency, Duration) Notes Start Date End Date Status Calcium Citrate + D 630MG/500IU 1 TAB(S) ORALLY ONCE DAILY Active Aspirin 81 MG 1 tab(s) orally once a day; Duration: 30 day(s) Active Lisinopril 30 MG TAKE 1 TABLET EVERY DAY Active Simvastatin 20 MG 1 tablet in the even ing Orally once daily Active Immunizations Vaccine Route Administration Date Status Comme nts Fluzone High Dose (65yr and older) IM Intramuscular 10/25/2024 Administered Social History Tobacco Use: Social History Observation Description Date Smoking Status WARNING: Information temporarily unavailable CURRENT TOBACCO USE: Question Answer Notes Are you a: 1/2 pack daily, Since Age: 19 Vital Signs Weight 147.8 lbs 10/25/2024 Blood pressure systolic 132 mm Hg 10/26/19 25 Blood pressure diastolic 78 mm Hg 025 Heart Rate 75 /min 10/25/2024 Height 68.50 in 10/25/2024 BMI 22.14 kg/m2 10/25/2024 Encounters Encounter Location Date Provider Diagnosis [facility] [address] [place] [phone] 10/25/2024 Shayne Garcia Pure hypercholestero lemia E78.00 ; Essential hypertension I10 ; Vitamin D deficiency E55.9 ; Breast cancer screening by mammogram Z12.31 ; Encounter for immunization Z23 and BMI 22.0-22.9, adult Z68.22 Assessments Encounter Date Diagnosis (ICD Code) Assessment Notes Treatment Notes Treatment Clinical Notes Section Notes 10/25/2024 Pure hypercholesterolemia (ICD-10 - E78.00) 10/25/2024 Essential hypertensi on (ICD-10 - I10) 10/25/2024 Vitamin D deficiency (ICD-10 - E55.9) 10/25/2024 Breast cancer screen ing by mammogram (ICD-10 - Z12.31) 10/25/2024 Encounter for immunization (ICD-10 - Z23) 10/25/2024 BMI 22.0-22.9, adult (ICD-10 - Z68.22) Plan Of Treatment Medication Medication Name Sig Start Date Stop Date Notes Lisinopril 30 MG TAKE 1 TABLET EVERY DAY Simvastatin 20 MG 1 tablet in the even ing Orally once daily Pending Test Test Name Order Date Mammogram 10/25/2024 Next Appt Details Follow Up: 6 Months, Reason: Provider Name:Shayne rosales, 04/24/2025 09:45:00 AM, [address], [address], [place], [phone], Progress Notes * SHERI JALLOH:1945 (79 yo F)Acc No.[id number]:10/25/2024 Progress Notes Patient: EDYTA HIRSCH Provider: Lucho Garcia M.D. :1945 A ge:79 Y S ex:Female Date:10/25/2024 Address:[address] [place] [address] [address], [place], [id number] Subjective: * Chief Complaints: * 1 . 6 month fasting checkup. * HPI: C ardiology: 79 year old female presents with c/o Blood Pressure Elevated?Pt here for 6 month follow up on Hypertension. Pt states she is doing well and has no new concerns. Pt would like flu shot. c/o Hyperlipidemia P t is fasting today. * Medical History: H ypertension, Hyperlipidemia, RT [...] Procedure: M astectomy - Overnight stay - [facility] 02/1999. * Family History: F ather: 82 yrs, diagnosed with Hypertension, Diabetes, Heart Disease. M other: 90 yrs, diagnosed with Hypertension, Stroke. S iblings: alive, diagnosed with Cancer. Children: alive. P aternal Grand Father: diagnosed with Cancer, Heart Disease. M aternal Grand Father: diagnosed with Heart Disease. P aternal uncle: diagnosed with Diabetes. P aternal aunt: diagnosed with Diabetes. M aternal uncle: diagnosed with Diabetes. M aternal aunt: diagnosed with Cancer, Diabetes. 3 sister(s) . 2 son(s) - healthy. [...] tab(s) orally once a day , Taking Simvastatin 20 MG Tablet 1 tablet in the evening Orally once daily , Taking Lisinopril 30 MG Tablet TAKE 1 TABLET EVERY DAY , Medication List reviewed and reconciled with the patient * Allergies: A lendronate Sodium: GI upset - Side Effects - Onset Date 10/24/2019. Objective: * Vitals: W t: 147.8, Temp: 98.2, BP: 132/78, HR: 75, Nurse: SF, Ht: 68.50, BMI:22.14. * Examination: C ardiology: General Appearance: p leasant, NAD. H EENT: u nremarkable. H eart sounds: R RR, normal S1, S2. L ungs: c lear, no rales or wheezes.?Extremities: n o leg edema. Assessment: * Assessment: 1. P ure hypercholesterolemia - E78.00 (Primary) 2 . E ssential hypertension - I10 3 . V itamin D deficiency - E55.9 4 . B reast cancer screening by mammogram - Z12.31 5 . E ncounter for immunization - Z23 ? 6 . B W[place] 22.0-22.9, adult - Z68.22 Plan: * Treatment: Value Reference Range A /G Ratio 2.2 1.1-2.5 - * A lbumin 4.7 3.5-5.3 - g/dL * A lkaline Phosphatase 84 35-121 - IU/L * A LT (SGPT) 14 <5-47 - IU/L * A ST (SGOT) 19 <5-40 - IU/L * B ilirubin, Total 0.3 <0.2-1.2 - mg/dL * B UN 11 8-23 - mg/dL * C alcium 9.9 8.6-10.4 - mg/dL * C hloride 100 97-108 - mmol/L * C O2 25 20-32 - mmol/L * C reatinine 0.78 0.50-1.00 - mg/dL * G lucose 97 65-99 - mg/dL * P otassium 4.5 3.5-5.3 - mmol/L * S odium 137 135-145 - mmol/L * P rotein 6.8 6.0-8.3 - g/dL * e GFR by Creatinine 77 >59 - mL/min/1.73m2 * Alma Obrien 10/27/2024 04:23: 25 PM EDT > Pt notified ?LAB: P-Lipid Panel (Collection Date & Time - 10/25/2024 08:22 AM)?Normal* Value Reference Range C holesterol / HDL Ratio 2.23 0.00-4.44 - Ratio * C holesterol 163 <200 - mg/dL * H DL Cholesterol 73 >39 - mg/dL * L DL Cholesterol (Calculation) 74 <130 - mg/d L * L DL/HDL Ratio 1.0 <3.3 - Ratio * N on-HDL Cholesterol 90 <130 - mg/dL * T riglycerides 82 <150 - mg/dL * Alma Obrien 10/27/2024 04:23: 25 PM EDT > Pt notified ?LAB: P-TSH reflex to FT4 (Collection Date & Time - 10/25/2024 08:22 AM)? Normal* Value Reference Range T SH reflex to FT4 1.98 0.43-5.25 - mU/L * Alma Obrien 10/27/2024 04:23: 25 PM EDT > Pt notified 2.?Essential hypertension? Continue Lisinopril Tablet, 30 MG, TAKE 1 TABLET EVERY DAY.?LAB: P-Comprehensive Metabolic Panel (CMP) (Collection Date & Time - 10/25/2024 08:22 AM)?Normal* Value Reference Range A /G Ratio 2.2 1.1-2.5 - * A lbumin 4.7 3.5-5.3 - g/dL * A lkaline Phosphatase 84 35-121 - IU/L * A LT (SGPT) 14 <5-47 - IU/L * A ST (SGOT) 19 <5-40 - IU/L * B ilirubin, Total 0.3 <0.2-1.2 - mg/dL * B UN 11 8-23 - mg/dL * C alcium 9.9 8.6-10.4 - mg/dL * C hloride 100 97-108 - mmol/L * C O2 25 20-32 - mmol/L * C reatinine 0.78 0.50-1.00 - mg/dL * G lucose 97 65-99 - mg/dL * P otassium 4.5 3.5-5.3 - mmol/L * S odium 137 135-145 - mmol/L * P rotein 6.8 6.0-8.3 - g/dL * e GFR by Creatinine 77 >59 - mL/min/1.73m2 * Alma Obrien 10/27/2024 04:23: 25 PM EDT > Pt notified ?LAB: P-Microalbumin/Creatinine, Random Urine Sample (Collection Date & Time - 10/25/2024 08:22 AM)?Normal* Value Reference Range A lbumin/Creatinine Ratio, Urine 13 0-30 - ug /mg * C reatinine, Urine 39.5 - mg/dL * M icroalbumin, Urine, Random 0.5 - mg/dL * Alma Obrien 10/27/2024 04:23: 25 PM EDT > Pt notified 3.?Vitamin D deficiency?LAB: P-Vitamin D 25-Hydroxy (Collection Date & Time - 10/25/2024 08:22 AM)? Normal* Value Reference Range V itamin D 25-Hydroxy 48.7 30.0-100.0 - ng/mL * Alma Obrien 10/27/2024 04:23: 25 PM EDT > Pt notified 4.?Breast cancer screening by mammogram?Imaging: Mammogram* On or after 11/21/24 at [facility] Mikayla khan 10/25/2024 10:56:16 AM EDT > faxed to [facility] Scheduling * Immunizations: Fluzone High Dose (65yr and older) : 0.5 mL (Route: Intramuscular) given by Alma Obrien on Left Deltoid (Encounter for immunization) * Procedure Codes: G 2211 Complex e/m visit add on, G8420 BMI<30 AND >=22 CALC & DOCU, G8950 PREHTN/HTN BP DOC INDCD F/U DOC, 3075F SYST BP GE 130 - 139MM HG, 3078F DIAST BP < 80 MM HG * Follow Up: 6 Months * Images: Billing Information: * Visit Code: 49225 Office Visit, Est Pt., Level 4. * Procedure Codes: G2211 Complex e/m visit add on. G8420 BMI<30 AND >=22 CALC & DOCU. G8950 PREHTN/HTN BP DOC INDCD F/U DOC. 3075F SYST BP GE 130 - 139MM HG. 3078F DIAST BP < 80 MM HG. * Electronic signature of Nadira Garcia MD on 11/23/2024 at 10:20 AM EDT Sign off status: Pending * Provider: Lucho Garcia M.D. Date: 0 10/25/2024 Generated for Trey crouch/Robel/Kaykayitting on: 1 10:20 AM EDT History and Physical Notes * HPI (History of Present Illness) Category Sub-Category Detail Notes Category Not es Cardiology Blood Pressure Elevated Pt here for 6 month follow up on Hypertension. Pt states she is doing well and has no new concerns. Pt would like flu shot Hyperlipidemia Pt is fasting today Examination Category Sub-Category Detail Notes Category Not es Cardiology Lungs: clear, no rales or wheezes HEENT: unremarkable Heart sounds: RRR, normal S1, S2 Extremities: no leg edema General Appearance: pleasant, NAD
--- NOTE | 2024-11-23 10:03 | MM_ITS ---
PROCEDURE INFORMATION: Exam: MG Left Screening 3D Mammography Exam date and time: 11/23/2024 10:16 AM Age: 79 years old Clinical indication: Screening examination. TECHNIQUE: Imaging protocol: Left Screening tomosynthesis and 2D mammography including computer-aided detection (CAD) when performed. COMPARISON: 1. MG MM DIG SC MAMM UNILAT LT CAD 11/22/2023 1:44 PM 2. MG MM DIG SC MAMM UNILAT LT CAD 11/18/2022 10:40 AM FINDINGS: MAMMOGRAPHY: Breast composition: There are scattered areas of fibroglandular density. Mass: None. Architectural distortion: None. Calcifications: No suspicious calcifications. Asymmetric density: None. Skin thickening: None. Axillary adenopathy: None. IMPRESSION: No mammographic evidence of malignancy. Annual screening is recommended unless otherwise clinically indicated. ASSESSMENT: BI-RADS Category 1: Negative.
--- OUTSIDE RECORDS SUMMARY | 2024-11-23 10:19 | XMS_ITS | Encounter Summary ---
Author Organization [place] [address] Care Team Providers Care Solar Project Coordination Specialist Name Role Phone Megan Denise MD, [place] Primary Care Provider + Encounter Details Date Type Department Care Team (Late st Contact Info) Description 03/01/2014 Orders Only SEP Gastro [facility] [address] [place], [place] [id number] Any Villalobos MD Social History Tobacco Use Types Packs/Day Years Used Date Smoking Tobacco: Every Day Cigarettes 0.3 46 Smokeless Tobacco: Never Alcohol Use Standard Drinks/Week Comments No 0 (1 standard drink = 0.6 oz pur e alcohol) Comments No Sex and Gender Information Value Date Recorded Sex Assigned at Not on file Legal Sex Female 2:53 PM EDT Gender Identity Not on file Sexual Orientation Not on file documented as of this encounter Plan of Treatment Not on file documented as of this encounter Procedures Procedure Name Priority Date/Time Associated Diagnosis Comments [facility]ED COLONOSCOPY Routine 03/01/2014 8:00 AM EST documented in this encounter Results * GMED COLONOSCOPY (03/01/2014 8:00 AM EST) 03/01/2014 8:00 AM EST Impressions [facility] - 03/01/2014 7:55 AM EST Polyp (8 mm) in the ascending colon. (Polypectomy). Polyp in the distal sigmoid colon. (Polypectomy). Polyp in the distal rectum. (Polypectomy). Angioectasia in the cecum. Diverticulosis of the the left side of the colon. Internal hemorrhoids. Plan: Colonoscopy in 5 years This section is an excerpt of the full report. us Any Villalobos MD GI PROCEDURE ORDERABLES Final R esult Performing Organization Address City/State/[facility] Co de Phone Number [facility] [address] [place] [address] documented in this encounter Visit Diagnoses Not on filedocumented in this encounter Care Teams Solar Project Coordination Specialist Relationship Specialty Start Date End Date Dakota Guzman MD [address] [place] [phone] PCP - General 09/18/09 documented as of this encounter
--- OUTSIDE RECORDS SUMMARY | 2024-11-23 10:20 | XMS_ITS | Clinical Summary ---
Author Organization [facility] Address [address] [place] [address] Phone Care Team Providers Care Calibration Engineer Name Role Phone Megan Denise MD, Harold Primary Care Provider + Allergies Active Allergy Reactions Criticality Noted Date Comments Adhesive 12/19/2010 Redness, scaling Iodine 12/19/2010 Redness, scaling Medications MULTIVITAMINS W/C ORAL Take by mouth daily. Active NAPROXEN SODIUM (ALEVE ORAL) Take 220 mg by mouth daily. Active aspirin 81 mg tablet Take 81 mg by mouth daily. Active [place]-3 Fatty Acids-Vitamin E (FISH OIL) 1,000 mg Cap Take by mouth. Reported on 06/24/2016 Active CALCIUM CARBONATE (TUMS ORAL) Take by mouth. Reported on 06/24/2016 Active ERGOCALCIFEROL , VITAMIN D2, (VITAMIN D ORAL) Take 1 Tab by mouth daily. Reported on 06/24/2016 Active VITAMIN E ACETATE (VITAMIN E ORAL) Take 1 Tab by mouth daily. Reported on 06/24/2016 Active biotin 1 mg Cap Take by mouth. Reported on 06/24/2016 Active alendronate (FOSAMAX) 10 mg tablet Take 70 mg by mouth once a week. Active simvastatin (ZOCOR) 20 mg Oral TabletIndicati ons:hyperlipid emia Take by mouth nightly. Indications: HYPERLIPIDEMIA Active SENNOSIDES (SENNA LAX ORAL) Take by mouth daily. Active LISINOPRIL ORAL Take by mouth. 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 Cousin Diabetes Paternal Aunt 1 Diabetes Paternal Aunt 2 Cancer Paternal Grandfather Not roseline e of primary- had metastatic disease Diabetes Paternal Grandmother Diabetes Paternal Uncle 1 Heart Disease Paternal Uncle 2 Breast Cancer Sister 1 Hypertension Sister 2 Colon Cancer Neg Hx Endometrial Cancer Neg Hx Ovarian Cancer Neg Hx Relation Name Status Comments Father Maternal Aunt Alive Maternal Grandfather Mother Other Mat. Cousin Paternal Aunt 1 Paternal Aunt 2 Paternal Grandfather Paternal Grandmother Paternal Uncle 1 Paternal Uncle 2 Sister 1 Alive Sister 2 Social History Tobacco Use Types Packs/Day Years Used Date Smoking Tobacco: Every Day Cigarettes 0.3 46 Smokeless Tobacco: Never Tobacco Cessation:Ready to Q uit: No; Counseling Given: Yes Alcohol Use Standard Drinks/Week Comments No 0 (1 standard drink = 0.6 oz pur e alcohol) Comments No Sex and Gender Information Value Date Recorded Sex Assigned at Not on file Legal Sex Female 2:53 PM EDT Gender Identity Not on file Sexual Orientation Not on file Last Filed Vital Signs Vital Sign Reading Time Taken Comments Blood Pressure 154/69 11/06/2020 1:13 PM EDT Pulse 60 11/06/2020 1:13 PM EDT Temperature 36.2 C (97.2 F) 11/06/2020 1:13 PM EDT Respiratory Rate 18 10/25/2019 1:20 PM EDT Oxygen Saturation 97% 07/05/2018 12: 58 PM EDT Inhaled Oxygen Concentration - - Weight 74.8 kg (164 lb 12.8 oz) 11/06/2020 1:13 PM EDT Height 174 cm (5' 8.5 ) 10/25/2019 1:20 PM EDT Body Mass Index 24.69 10/25/2019 1:20 PM EDT Plan of Treatment Health Maintenance Due Date Last Done Comments Wellness Exam Medicare 1948 Hepatitis C Screening 09/02/1963 Pneumococcal Vaccine 50+ (1 of 1 - PCV) 09/02/1995 Zoster (1 of 2) 09/02/1995 DTaP/TDaP/Td (1 - Tdap) 04/13/1996 04/12/1996 RSV or 60+ (1 - 1-dose 75+ series) 2020 COVID-19 Vaccine (3 - season) 2024 04/17/2020, 03/20/2020 Influenza Vaccine (#1) 2024 1, 10/24/2019, 11/01/2018, Additional history exists Bone Density Screening Completed 4, 01/07/2012, 01/07/2012, Additional history exists Colon Cancer Screening Discontinued Colonoscopy Discontinued 03/01/2014 Cologuard Discontinued FIT Discontinued Hepatitis B Vaccine Aged Out No longe r eligible based on patient's age to complete this topic Meningococcal B Vaccine Aged Out No l onger eligible based on patient's age to complete this topic Sigmoidoscopy Discontinued Virtual Colonography Discontinued Goals Goal Patient Goal Type Associated Problems Recent Progress Patient-Stated? Author Breast Health Breast Health On track( 021 1:15 PM EDT) No Nedra Gastelum, RN Note: Patient will be compliant with recommended breast imaging. Procedures Procedure Name Priority Date/Time Associated Diagnosis Comments GMED COLONOSCOPY Routine 03/01/2014 8:00 AM EST DX BONE DENSITY AXIAL SKELETON Routine 01/08/2014 2:37 PM EST Osteoporosis, unspecified from Last 3 Months or Most Recently Relevant to Health Maintenance Results * GMED COLONOSCOPY (03/01/2014 8:00 AM EST) 03/01/2014 8:00 AM EST Impressions [facility] - 03/01/2014 7:55 AM EST [...] MD GI PROCEDURE ORDERABLES Final R esult [facility] [address] [place] [address] * DX BONE DENSITY AXIAL SKELETON (01/08/2014 2:37 PM EST) Anatomical Region Laterality Modality Dexa Scan 01/08/2014 Narrative 01/09/2014 8:39 AM EST Indication: The patient is presently being monitored while on treatment and requires a bone density assessment. Study was performed on [facility]. Bone Density: Region BMD T-score Z-score AP Spine (L1-L4) 0.817 -2.1 -0.1 Femoral Neck (Left) 0.756 -0.8 0.9 Total Hip (Left) 0.867 -0.6 0.8 World Health Organization criteria for BMD interpretation classify patients as: Normal (T-score at or above -1.0), Low Bone Density (T-score between -1.0 and -2.5), or Osteoporotic (T-score at or below -2.5). T Scores are reported in Postmenopausal women and in men age 50 and older. Z-scores are reported in females prior to menopause and in males younger than age 50. 10-year Fracture Risk: FRAX not reported because: Treated for osteoporosis Previous Exams: Region Date Age BMD T-score BMD Change AP Spine(L1-L4) 01/08/2014 68 0.817 -2.1 7.1%* 01/07/2012 66 0.763 -2.6 Total Hip(Left) 01/08/2014 68 0.867 -0.6 -1.6% 01/07/2012 66 0.881 -0.5 *Denotes significance at 95% confidence level, site specific LSC for AP Spine = 0.032 g/cm2, site specific LSC for Total Hip = 0.025 g/cm2 BMD is shown in g/cm2 and BMD Change indicates change vs previous BMD Clinical Information Provided by Patient: Smokes Is being treated for osteoporosis Has taken a bisphosphanate within the last two years Has used the following medications: Calcium, Aromatase Inhibitors, Vitamin D, Chemotherapy drugs Has the following medical conditions: Breast Cancer Patient maximum height was 69.5 Interpretation: The patient's previous bone mineral density was in the osteoporotic range. on today's exam the bone mineral density is in the low bone density range. The spine bone mineral density is significantly increased from the last exam. The left hip bone mineral density is not significantly changed since last exam. A minimum of two years may be required between bone density studies due to inherent testing precision limitations. Intervals between BMD testing should be determined according to each patient's clinical status: typically one year after initiation or change of therapy is appropriate, with longer intervals once therapeutic effect is established. Reported by: Gabrielle Sanchez PA-C, JOSELINE on 01/08/2014 4:12:00 PM. Procedure Note Kendra Zapata MD - 01/09/2014 Indication: The patient is presently being monitored while on treatment and requires a bone density assessment. Study was performed on [facility]. Bone Density: Region BMD T-score Z-score AP Spine (L1-L4) 0.817 -2.1 -0.1 Femoral Neck (Left) 0.756 -0.8 0.9 Total Hip (Left) 0.867 -0.6 0.8 World Health Organization criteria for BMD interpretation classify patients as: Normal (T-score at or above -1.0), Low Bone Density (T-score between -1.0 and -2.5), or Osteoporotic (T-score at or below -2.5). T Scores are reported in Postmenopausal women and in men age 50 and older. Z-scores are reported in females prior to menopause and in males younger than age 50. 10-year Fracture Risk: FRAX not reported because: Treated for osteoporosis Previous Exams: Region Date Age BMD T-score BMD Change AP Spine(L1-L4) 01/08/2014 68 0.817 -2.1 7.1%* 01/07/2012 66 0.763 -2.6 Total Hip(Left) 01/08/2014 68 0.867 -0.6 -1.6% 01/07/2012 66 0.881 -0.5 *Denotes significance at 95% confidence level, site specific LSC for AP Spine = 0.032 g/cm2, site specific LSC for Total Hip = 0.025 g/cm2 BMD is shown in g/cm2 and BMD Change indicates change vs previous BMD Clinical Information Provided by Patient: Smokes Is being treated for osteoporosis Has taken a bisphosphanate within the last two years Has used the following medications: Calcium, Aromatase Inhibitors, Vitamin D, Chemotherapy drugs Has the following medical conditions: Breast Cancer Patient maximum height was 69.5 Interpretation: The patient's previous bone mineral density was in the osteoporotic range. on today's exam the bone mineral density is in the low bone density range. The spine bone mineral density is significantly increased from the last exam. The left hip bone mineral density is not significantly changed since last exam. A minimum of two years may be required between bone density studies due to inherent testing precision limitations. Intervals between BMD testing should be determined according to each patient's clinical status: typically one year after initiation or change of therapy is appropriate, with longer intervals once therapeutic effect is established. Reported by: Gabrielle Sanchez PA-C, CCD on 01/08/2014 4:12:00 PM. Dakota Denise MD IMG DEXA ORDERABLES Disha l Result from Last 3 Months or Most Recently Relevant to Health Maintenance Insurance [employer] MEDICARE PPO MR [place] [id number] [facility] MEDICARE PPO MR Care Teams Calibration Engineer Relationship Specialty Start Date End Date Dakota Guzman MD [address] [place] [phone] PCP - General 09/18/09
--- OUTSIDE RECORDS SUMMARY | 2024-11-23 10:20 | XMS_ITS | Patient Health Record ---
Author Organization [facility] Address [address] [phone] Care Team Providers Care Bullet Maker Name Role Phone Shayne Garcia Primary Care [...] type, extending to the deep margin. Aster Sargent MD electronically signed 02/28/2024 01:01 PM Gross [...] 2A, 05/09. (RMJ,SA12,amw1) Grossing services provided by [facility], d/b/a [address] [place], [address] Ronnie Hubbard MD, Patient Experience Coordinator. Microscopic Description: 1. There is a crateriform [...] End of Report Technical services provided by [facility], d/b/a [address] [place] [address] Ronnie Hubbard MD, Patient Experience Coordinator. Case reviewed and diagnosis rendered at [facility], d/b/a [address] , [place] [address] Ronnie Hubbard MD, Patient Experience Coordinator. CONFIDENTIAL P-Comprehensive Metabolic Pa amy (CMP) Reviewed date:10/27/2024 04:23:53 PM Interpretation:Normal Performing Lab: Notes/Report: Test performed by [facility] [address] [place] [address] , [address], [place] [address] Kip Chen MD, Patient Experience Coordinator CLIA: [id number] Sodium 137 135-145 mmol/L Potassium 4.5 3.5-5.3 [...] Interpretation:Normal Performing Lab: Notes/Report: Test performed by [facility] [address] [place] [address] , [address], [place] [address] Kip Chen MD, Patient Experience Coordinator CLIA: [id number] Cholesterol 163 <200 mg/dL Triglycerides 82 <150 [...] Interpretation:Normal Performing Lab: Notes/Report: Test performed by [facility] [address] [place], [place] [address] [place] , [place] [address] Kip Chen MD, Patient Experience Coordinator CLIA: [id number] TSH reflex to FT4 1.98 0.43-5.25 mU/L P-Microalbumin/Creatinine, R andom Urine Sample Reviewed date:10/27/2024 04:23:53 PM Interpretation:Normal Performing Lab: Notes/Report: Test performed by [facility] [address] [place] [address] , [address], [place] [address] Kip Chen MD, Patient Experience Coordinator CLIA: [id number] Albumin/Creatinine Ratio, Urine 13 0-30 ug/mg Microalbumin, Urine, Random 0.5 Creatinine, Urine 39.5 P-Vitamin D 25-Hydroxy Reviewed date:10/27/2024 04:23:53 PM Interpretation:Normal Performing Lab: Notes/Report: Test performed by [facility] [address] [place] [address] , [address], [place] [address] Kip Chen MD, Patient Experience Coordinator CLIA: [id number] Vitamin D 25-Hydroxy 48.7 30.0-100.0 ng/mL Interpretation of Vitamin D 25 [place]: < 20 ng/mL - Deficiency 20 - 29 ng/mL - Insufficiency 30 - 100 ng/mL - Sufficiency > 100 ng/mL - Super-therapeutic- toxicity may occur above this level. Clinical correlation required. 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 Referred Provider Specialty Dermatology General Notes Mikayla Mina 03/02/19 10:47:43 AM > faxed to [facility] Brynn 03/06/2024 9:15:10 AM > spoke with Natacha; referral received, Mikayla Mina 03/14/2024 11:14:00 AM > patient cannot be seen until April 2024; sending fax to [facility] Referral Priority Routine Medications Medication SIG (Take, Route, Frequency, Duration) Notes Start Date End Date Status Calcium Citrate + D 630MG/500IU 1 TAB(S) ORALLY ONCE DAILY Active Aspirin 81 MG 1 tab(s) orally once a day; Duration: 30 day(s) Active Lisinopril 30 MG TAKE 1 TABLET EVERY DAY Active Simvastatin 20 MG 1 tablet in the even ing Orally Once a day; Duration: 90 days Active Immunizations Vaccine Route Administration Date Status Comme nts xFlu shot- 6months-36 months of zul-IKIZ-HYZI-trivalent Unknown 12/16/2011 Administered Prevnar (PCV20) IM Intramuscular 10/27/2022 Administered PNEUMOVAX 23 VACCINE IM Intramuscular 10/27/2023 Administe red Fluzone High Dose (65yr and older) IM Intramuscular 11/01/2018 Administered Fluzone High Dose (65yr and older) IM Intramuscular 10/24/2019 Administered Fluzone High Dose (65yr and older) IM Intramuscular 11/05/2020 Administered Fluzone High Dose (65yr and older) IM Intramuscular 10/27/2021 Administered Fluzone High Dose (65yr and older) IM Intramuscular 10/27/2022 Administered Fluzone High Dose (65yr and older) IM Intramuscular 10/27/2023 Administered Fluzone High Dose (65yr and older) IM Intramuscular 10/25/2024 Administered DT, 7 YEARS OR OLDER Unknown 04/12/1996 Administered COVID 19 Moderna Unknown 03/20/2020 Administered COVID 19 Moderna Unknown 04/17/2020 Administered COVID 19 Moderna Unknown 12/27/2020 Administered Social History Tobacco Use: Social History Observation Description Date Smoking Status WARNING: Information temporarily unavailable CURRENT TOBACCO USE: Question Answer Notes Are you a: 1/2 pack daily, Since Age: 19 Problems Problem Type SNOMED Code ICD Code Onset Dates Problem Status W/U Status Risk Notes Problem Vitamin D deficiency (43835124) Vitamin D deficiency (E55.9) Active confirmed Problem Essential hypertension (74316578) Essential hypertension (I10) Active confirmed Problem Pure hypercholesterolemia (268751413) Pure hypercholesterolemia (E78.00) Active confirmed Problem Age-related osteoporosis (397891225) Age related osteoporosis, unspecified pathological fracture presence (M81.0) Active confirmed Problem Primary squamous kayla l carcinoma of skin of right lower limb (disorder) (0300738584366265) 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 522 [facility] [address] [place], [place] [id number] 02/25/2024 Shayne [place] Neoplasm of uncertai n behavior of skin of lower leg D48.5 [facility] [address] [place] [id number] 04/26/2024 Shayne [place] Essential hypertensi on I10 ; Pure hypercholesterolemia E78.00 and Recurrent syncope R55 [facility] [address] [place], [place] [id number] 10/25/2024 Shayne [place] Pure hypercholestero lemia E78.00 ; Essential hypertension I10 ; Vitamin D deficiency E55.9 ; Breast cancer screening by mammogram Z12.31 ; Encounter for immunization Z23 and BMI 22.0-22.9, adult Z68.22 [facility] [address] [place], [place] [id number] 12/20/2023 Shayne [place] [facility] [address] [place], [place] [id number] 02/28/2024 Shayne [place] Primary squamous kayla l carcinoma of skin of right lower extremity C44.722 [facility] [address] [place], [place] [id number] 03/14/2024 Shayne [place] [facility] [address] [place], [place] [id number] 05/16/2024 Shayne [place] [facility] [address] [place], [place] [id number] 11/22/2024 Shayne [place] Pure hypercholestero lemia E78.00 Assessments Encounter Date Diagnosis (ICD Code) Assessment Notes Treatment Notes Treatment Clinical Notes Section Notes 12/17/2023 Left elbow pain (ICD -10 - M25.522) 02/25/2024 Neoplasm of uncertai n behavior of skin of lower leg (ICD-10 - D48.5) 02/28/2024 Primary squamous kayla l carcinoma of skin of right lower extremity (ICD-10 - C44.722) 04/26/2024 Essential hypertensi on (ICD-10 - I10) 04/26/2024 Pure hypercholesterolemia (ICD-10 - E78.00) 10/25/2024 Essential hypertensi on (ICD-10 - I10) 10/25/2024 Pure hypercholesterolemia (ICD-10 - E78.00) 11/22/2024 Pure hypercholesterolemia (ICD-10 - E78.00) 04/26/2024 Recurrent syncope (ICD-10 - R55) Patient declines further work up today, discussed having a loop recorder placed 10/25/2024 Vitamin D deficiency (ICD-10 - E55.9) 10/25/2024 Breast cancer screen ing by mammogram (ICD-10 - Z12.31) 10/25/2024 Encounter for immunization (ICD-10 - Z23) 10/25/2024 BMI 22.0-22.9, adult (ICD-10 - Z68.22) Plan Of Treatment Pending Test Test Name Order Date Mammogram 10/25/2024 Next Appt Details Provider Name:Shayne Martinez ry, 04/24/2025 09:45:00 AM, [address], [address], [place], [place], [id number], Insurance Providers Payer Name Payer Address Payer Phone Subscriber Number Group Number Insured Name Patient Relationship to Insured Coverage Start Date Coverage End Date [employer] (MEDICAR E) [address] [address] [place] [phone] [id number] VERONA NEGRON Self - patient is the insured Medical (General) History Medical History History ICD Code Hypertension Hyperlipidemia RT Side Breast Cancer, Oct/ Nov 1998 - Chemo, Surgery, Radiation - Chemo 2000 and 2001 Arthritis Allergic Rhinitis Neuropathy - Cancer Osteoporosis Cologuard, 2017 (normal), 2020 (abnormal ), see colonoscopy DVT, left upper extremity af ter IV port placement, s/p 6 months of Warfarin therapy Colon polyps diverticulosis 25 pack year smoking history as of 2021 Squamous cell skin cancer, right leg, Dx 2024 Surgical History Surgery Date(Month/Year) RT Mastectomy 02/1999 Colonoscopy 2020 Hospitalization History Reason Date(Month/Year) Mastectomy - Overnight stay - [facility] [place] 02/1999
== END 2024-11-23 23:59 | disposition home or self-care (01) ==
LOC: RAD 10:02
PROVIDERS: PCP Family Medicine; Visit Provider Family Medicine
DX: Z12.31 Encounter for screening mammogram for malignant neoplasm of breast (principal); R92.323 Mammographic fibroglandular density, bilateral breasts
CPT/HCPCS: 77063; 77067

== ENCOUNTER 2025-01-18 12:19 | Outpatient (CLI) | payer MEDICARE, SELFPAY ==
--- NOTE | 2025-01-18 12:23 | XR_ITS ---
FINAL REPORT CLINICAL HISTORY: worsening pain COMPARISON: None FINDINGS: RIGHT HIP Two views of the right hip with an AP view of the pelvis demonstrate no acute fracture or dislocation. The joint spaces appear normal. The visualized bony structures are well aligned. No soft tissue abnormality is seen. IMPRESSION: No acute bony abnormality. Reviewed, Interpreted and Dictated by Jose Ruby MD Transcribed by Aster Calderon Authenticated and [facility]
--- NOTE | 2025-01-18 12:23 | XR_ITS ---
FINAL REPORT CLINICAL HISTORY: worsening pain COMPARISON: None FINDINGS: Two views of the right femur were obtained. There is no acute fracture or dislocation. The joint spaces are well preserved. There is no acute soft tissue abnormality. IMPRESSION: No acute abnormality identified. Reviewed, Interpreted and Dictated by Jose Ruby MD Transcribed by Aster Calderon Authenticated and [facility]
== END 2025-01-18 23:59 | disposition home or self-care (01) ==
LOC: RAD 12:20
PROVIDERS: PCP Family Medicine; Visit Provider Family Medicine
DX: M79.651 Pain in right thigh (principal)
CPT/HCPCS: 73502; 73552